=== PATIENT | female | born 1950 | race Caucasian/White ===

== ENCOUNTER → 2022-01-11 | Outpatient (CLI) | payer MEDICARE, OTHER ==
[2022-01-11 15:53] LABS: Prothrombin Time 10.8 sec (9.0-12.0)
[2022-01-12 00:54] LABS: Appearance,Urine Cloudy (Clear); Bilirubin,Urine Small (Negative); Blood,Urine Negative (Negative); Color,Urine Dark Yellow (Yellow); Ketones,Urine Trace mg/dL (Negative); Nitrite,Urine Negative (Negative); PH, Urine 6.5 (5.0-8.0); Urobilinogen,Urine 0.2 (0.2,1.0)
[2022-01-12 00:57] LABS: African American GFR (CKD) 77.2 (60.0-200.0); Albumin 4.6 g/dL (3.8-4.9); Albumin/Globulin Ratio 1.87 (1.60-3.17); Anion Gap 14.4 mmol/L (10.00-18.00); BUN/Creat Ratio 20.49 Ratio (12.00-20.00); Blood Urea Nitrogen 17.7 mg/dL (9.0-27.0); Calcium 10.2 mg/dL (8.7-10.3); Carbon Dioxide 25.6 mmol/L (20.0-27.5); Globulin 2.4 g/dL (1.6-3.3); Non-African American GFR(CKD) 66.6 (60.0-200.0); Potassium 4.3 mmol/L (3.5-5.5); Total Bilirubin 0.6 mg/dL (0.30-1.20)
[2022-01-12 01:20] LABS: HGB 15.4 g/dL (12.0-15.0); MCHC 32.1 g/dL (32.0-37.0); MCV 90.4 fL (80.0-97.0); Mean Platelet Volume 9.2 fL (9.5-12.2); NRBC Per 100 WBC 0 /100 WBCS (0.0-0.0); Platelet Count 290 X 10*3/uL (140-440); RBC 5.31 X 10*6/uL (4.10-5.20); RDW 12.5 % (11.5-14.5); WBC 5.88 X 10*3/uL (4.50-10.00)
[2022-01-12 01:45] LABS: Bacteria,Urine 1+ /HPF (None Seen)
== END | disposition home or self-care (01) ==
LOC: LABPAT 15:18
PROVIDERS: ATTEND Orthopaedic Surgery
DX: Z01.812 Encounter for preprocedural laboratory examination (principal); M16.11 Unilateral primary osteoarthritis, right hip
CPT/HCPCS: 80053; 81001; 85027; 85610; 85730; 87070

== ENCOUNTER 2022-01-22 06:06 | Day surgery (SDC) | payer MEDICARE, OTHER ==
[~2022-01-22 06:06] MED LIST: ACETAMINOPHEN TAB 500 MG TAB PO PRN; DEXAMETHASONE SOD PHOSPHATE 10 MG/ML 1 ML VIAL IV PRN; DOCUSATE 100 MG CAP PO PRN; FAMOTIDINE 20 MG/2 ML VIAL IVP PRN; KETOROLAC 15 MG/ML 1 ML VIAL IVP PRN; MIDAZOLAM 2 MG/2 ML VIAL IV PRN; ONDANSETRON 4 MG/2 ML VIAL IVP PRN; ROPIVACAINE/EPI/CLONIDINE/KET 50 ML SYRINGE MISCELLANE PRN; TRANEXAMIC ACID IN NACL,ISO-OS 1,000 MG in SALINE 1 100ML.BAG IVPB PRN; oxyCODONE ER 10 MG TAB.ER.12H PO PRN
[2022-01-22] MEDS ORDERED: HYDROmorphone 0.5 MG/0.5 ML SYRINGE IVP PRN ×4 (07:00→10:04)
[2022-01-22] MEDS: LACTATED RINGERS 1,000 ML IV SCH (07:02)
[2022-01-22] MEDS ORDERED: fentaNYL (PF) 50 MCG/ML 2 ML AMP IV ONE (07:11)
[2022-01-22] MEDS ORDERED: MIDAZOLAM 2 MG/2 ML VIAL IV ONE (07:11)
[2022-01-22] MEDS ORDERED: NEOSTIGMINE 1 MG/ML 10 ML VIAL ONE (07:28)
[2022-01-22] MEDS ORDERED: HYDROmorphone (PF) 1 MG/ML ONE (07:28)
[2022-01-22] MEDS ORDERED: SUCCINYLCHOLINE CHLORIDE 200 MG/10 ML VIAL IV ONE (07:28)
[2022-01-22] MEDS ORDERED: PHENYLEPHRINE-0.9% NACL SYG 1,000 MCG/10 ML SYRINGE ONE (07:28)
[2022-01-22] MEDS ORDERED: fentaNYL (PF) 50 MCG/ML 2 ML AMP ONE (07:28)
[2022-01-22] MEDS ORDERED: ROPIVACAINE 5 MG/ML 30 ML VIAL ONE (07:28)
[2022-01-22] MEDS ORDERED: LIDOCAINE 2% INJ 20 MG/ML (2 ML VIAL) ONE (07:28)
[2022-01-22] MEDS ORDERED: TRANEXAMIC ACID IN NACL,ISO-OS 1,000 MG/100 ML BAG ONE (07:28)
[2022-01-22] MEDS ORDERED: ROCURONIUM 10 MG/ML (5 ML VIAL) IV ONE (07:28)
[2022-01-22] MEDS ORDERED: GLYCOPYRROLATE 0.2 MG/ML 2 ML VIAL ONE (07:28)
[2022-01-22] MEDS ORDERED: PROPOFOL 10 MG/ML 20 ML VIAL IV ONE (07:28)
--- NOTE | 2022-01-22 09:15 | P.ANPRN ---
Procedure Note - Anesthesia - Nerve Block Performed Right Erector Spinae Single Time Out Performed: Yes ([id number]) Date of Procedure: 01/22/22 Procedure Start Time: 07:12 Procedure Stop Time: 07:15 Location of Patient: PreOp Indication: Acute Post-Operative Pain, Requested by Surgeon Specifically requested for management of pain by DrMara: Alon Lerma Sedation Type: Sedate with meaningful contact maintained Preparation: Sterile Prep Position: Sitting Catheter: None Needle Types: Pajunk Needle Gauge: 21 Ultrasound used to visualize needle placement: Yes Ultrasound used to observe medication spread: Yes Injectate: 0.5% Ropivacaine (see comment for volume) (30cc) Blood Aspirated: No Pain Paresthesia on Injection Noted: No Resistance on Injection: Normal Image Stored and Saved: Yes Events: Uneventful and Well Tolerated
[2022-01-22] MEDS ORDERED: LACTATED RINGERS 1,000 ML IV ONE (09:32)
[2022-01-22] MEDS ORDERED: NALOXONE 0.4 MG/ML 1 ML VIAL IV PRN (10:04)
[2022-01-22] MEDS ORDERED: hydrOXYzine pamoate 25 MG CAP PO PRN (10:04)
[2022-01-22] MEDS ORDERED: ONDANSETRON 4 MG/2 ML VIAL IVP PRN (10:04)
[2022-01-22] MEDS ORDERED: HYDROcodone/APAP 5-325MG 1 EACH TAB PO PRN ×2 (10:04)
--- NOTE | 2022-01-22 10:06 | XR ---
EXAMINATION TYPE: XR Hip Limited RT, FL guidance operating room DATE OF EXAM: 01/22/2022 CLINICAL HISTORY: Postoperative evaluation TECHNIQUE: Single portable view of the right hip was submitted. FINDINGS: Noted are changes of total hip arthroplasty with femoral and acetabular components appearin g well seated. Alignment is anatomic. Postsurgical soft tissue changes are evident. IMPRESSION: Satisfactory postoperative alignment. FLUORO TIME 35SECONDS
--- NOTE | 2022-01-22 10:09 | P.OP ---
Date of Procedure: 01/22/22 Preoperative Diagnosis: Severe right hip osteoarthritis Postoperative Diagnosis: Same Procedure(s) Performed: Right direct anterior total hip arthroplasty Implants: 1. [place] Trident II Acetabular Cup, Size #46 2. Jason Insignia Size # 3 Femoral Stem, Standard Offset 3. Dual Mobility OD 36 mm, ID 222. mm, +0 neck Anesthesia: JAVIERA, christopher Surgeon: Alon Lerma Biology Laboratory Assistant #1: Kera Espinoza Estimated Blood Loss (ml): 200 IV fluids (ml): 1,200 Pathology: none sent Condition: stable Disposition: PACU Indications for Procedure: I had a long discussion with the patient in the office on the potential risks and complications of an elective total hip replacement through a direct anterior approach. Risks discussed include, but are certainly not limited to, risks from anesthesia, superficial infection requiring local wound care or antibiotics, deep mohamud-prosthetic joint infection and the treatment required to eradicate infection, intraoperative fracture, postoperative periprosthetic fracture, damage to local blood vessels or nerves particularly the lateral femoral cutaneous nerve, delayed wound healing requiring local wound care or possibly surgical debridement, hip dislocation, leg length discrepancy, soft tissue irritation around the total hip implant such as iliopsoas tendinitis or trochanteric bursitis, wear and osteolysis from the implants, squeaking or audible noises, groin pain, thigh pain, heterotopic ossification, stiffness, aseptic loosening of the implants, dissatisfaction with surgical outcome, need for revision surgery, DVT, PE, swelling of the operative extremity, acute coronary event, stroke, failure to thrive, and possibly loss of life or limb. The patient understands that while these are the most common complications after an elective hip replacement there are certainly other less common complications possible. They were given ample time to ask questions regarding the potential complications of a hip replacement. Following our discussion the patient provided their verbal and written consent to go forward with an elective total hip replacement. Operative Findings: Severe right hip osteoarthritis Description of Procedure: The patient was identified in the preoperative holding area and the correct hip was marked with my initials. I reviewed the procedure and consent with the patient. All of their questions were answered. The patient was then brought back into the operating room by anesthesia. While on the [facility] anesthesia was administered by the anesthesia team. Preoperative antibiotics and tranexamic acid were also given. After the patient was under anesthesia I examined their ankles to determine their preoperative leg length discrepancy. The skin over the anterior aspect of the hip was shaved to remove hair over the site of planned incision. Both feet and ankles were padded with webril and boots for the [place] were applied. The patient was then carefully transferred onto the [place] table. A perineal post was immediately placed. The arms were placed on arm holders and were well-padded. Both boots were secured to the spars on the [place] table. The patient was positioned so that the pelvis was centered over the post. Nonsterile drapes were applied. A timeout was performed identifying the correct patient, operative extremity, and procedure. At this point fluoroscopy was brought in to take preoperative images of the pelvis and operative hip. Using the standing AP pelvis from the office as a template, a comparable image was obtained with fluoroscopy. A metallic bar was used to create a bi-ischial line for use as a reference to leg length adjustments during the procedure. Global offset was also measured on both the operative and nonoperative leg. Fluoroscopy was then brought out and a pre-scrub using a chlorhexidine scrub brush was performed. The operative limb was then prepped and draped in the standard sterile fashion. An anterior longitudinal incision was made lateral and distal to the ASIS. The skin and subcutaneous tissues were incised sharply. The underlying tensor fascia was identified and incised in its midportion. The fascia was dissected free from the underlying muscle and the muscle belly was retracted. A blunt tipped cobra retractor was placed over the superior neck under the muscle fibers of the gluteus minimus. The deep enveloping fascia of the tensor was incised. The anterior leash of vessels were then identified and cauterized. The fascia between the rectus and the capsule was then incised and the pre-capsular fat was excised. A second Cobra was placed inferior to the neck. The interval between the rectus and iliocapsularis and the hip capsule was developed and a retractor was placed carefully over the anterior rim of the acetabulum. A T-shaped anterior capsulotomy was performed. The superior capsular leaflet was left in place in the inferior capsular flap was excised. The Cobra retractors were placed intracapsularly. We then made a femoral neck osteotomy according to preoperative and intraoperative templating and confirmed the level of the osteotomy using fluoroscopic imaging. The femoral head was removed, passed off to the back table, and sized. The superior capsular flap was excised. Retractors were placed circumferentially exposing the acetabulum. We then circumferentially debrided the acetabulum free of labrum and osteophytes. The pulvinar was removed to fully visualize the cotyloid fossa. We then sequentially reamed to achieve peripheral fit and excellent bleeding subchondral bone. The socket was thoroughly irrigated. The acetabular component was impacted into the appropriate position using fluoroscopy to guide version, inclination, and depth of insertion taking care to have a comparable image of the AP pelvis to the standing image taken in the office. An excellent press-fit was achieved and final position was confirmed using fluoroscopy. The press fit was augmented with bony cancellus dome screws. The liner was then impacted into the socket. Attention was then turned to the femur. The remnant dorsal lateral capsule was excised. The short external rotators were visible and protected. A bone hook was used to confirm appropriate translation of the trochanter away from the acetabulum. The leg was then extended and adducted and the bone hook was used to elevate the femur for broaching. A box osteotome and blunt tipped canal sound was then utilized to gain access to the femoral canal. We then sequentially broached the femur in appropriate anteversion until excellent torsional stability was achieved. The neck cut was brought flush to the trial broach with a calcar planar. A trial neck and head were then placed onto the broach and the hip was atraumatically reduced under direct visualization. External rotation to 90 was performed to assess stability. Fluoroscopy was brought in. An AP and lateral fluoroscopic image of the proximal femur was obtained to assess position and fill of the trial broach. An AP of the pelvis was then obtained and matched to the preoperative image taken. A bi-ischial bar was then placed and measurements were taken to assess changes in length and offset. The hip was then carefully dislocated, the proximal femur was exposed, and the trial implants were removed. The wound and proximal femur was thoroughly irrigated using sterile saline and pulsatile lavage. The final femoral implant was dispensed and gently tapped into place generating an excellent press-fit. The trunnion was cleansed and the final head was tapped into place to engage the Enrique taper. The acetabulum was irrigated and visualized to be free of debris. The hip was carefully reduced. Stability was checked clinically with external rotation to 90 and there was no evidence of instability. Final fluoroscopic images were taken. The wound was then thoroughly irrigated and soaked with a dilute Betadine rinse for 3 minutes. 3 L of sterile saline was irrigated through the wound using pulsatile lavage. Local anesthetic cocktail was injected into the soft tissues around the surgical field. The wound was then closed in layers. A sterile dressing was placed over the surgical incision. The drapes were taken down and the patient was carefully transferred off of the [place] table. Following removal of the boots the leg lengths felt acceptable. The patient was then taken to recovery room having tolerated the procedure well. Kera Espinoza PA-C was required as a skilled permit review assistant for patient positioning, surgical exposure, retraction, placement of implants, and closure of the surgical wound. PLAN: The patient can weight-bear as tolerated on the operative extremity. 2 doses of postoperative antibiotics. DVT prophylaxis with aspirin 81 mg twice a day based on preoperative risk stratification. Physical therapy for gait training. Discontinue drain postoperative day #1 if output is less than 100 mL per shift.
[2022-01-22] MEDS ORDERED: ZOLPIDEM 5 MG TAB PO PRN (15:45)
--- NOTE | 2022-01-22 15:46 | P.CONS ---
History of Present Illness - Reason for Consult Consult date: 01/22/22 Medical management Requesting physician: Alon Lerma - Chief Complaint Right hip pain - History of Present Illness This is a pleasant 71-year-old patient, follows with . Chronic stable medical conditions include DVT of age of 18 years, hypertension, hyperlipidemia, osteoarthritis, endometrial cancer in 2020, IBS. Patient is undergoing right total hip arthroplasty. Postprocedure pain is controlled. No nausea, vomiting. Unclear liquids. Denies any cardiac or pulmonary history. Daughter at the bedside. Review of systems: GEN.: Tired EYES: None HEENT: None NECK: None RESPIRATORY: None CARDIOVASCULAR: None GASTROINTESTINAL: None GENITOURINARY: Incontinent MUSCULOSKELETAL: Other joint pains LYMPHATICS: None HEMATOLOGICAL: None PSYCHIATRY: Anxiety NEUROLOGICAL: Recently been using a cane, does not sleep well Past medical history to include: TIA, DVT about 20 years ago, hypertension, hyperlipidemia, osteoarthritis, endometrial cancer 2020, IBS, Social history: No smoking or alcohol. Lives alone. Family history: DVT Physical examination: VITAL SIGNS: 98.2, 76, 18, 101/64, 95% room air GENERAL:, BMI 33.5, reclining in bed, awake, comfortable. EYES: Pupils equal. Conjunctiva normal. HEENT: External appearance of nose and ears normal, oral cavity grossly normal. NECK: JVD not raised; masses not palpable. HEART: First and second heart sounds are normal; no edema. LUNGS: Respiratory rate normal; clear to auscultation. ABDOMEN: Soft, nontender, liver spleen not palpable, no masses palpable. PSYCH: Alert and oriented x3; mood and affect normal. MUSCULOSKELETAL:No Clubbing/cyanosis;muscles-grossly intact. Evidence of OA. Icepack overwrite the incision. NEUROLOGICAL: Cranial nerves grossly intact; no facial asymmetry, power and sensation grossly intact. LYMPHATICS: No lymph nodes palpable in the axilla and neck INVESTIGATIONS, reviewed in the clinical context: WBC 5.8 hemoglobin 15.4 platelets 290. Sodium 140, potassium 4.3, BUN 17.7, creatinine 0.9 Assessment and plan: -Right anterior total hip arthroplasty. IV Ancef for infection prophylaxis, aspirin for DVT prophylaxis, pain control. -Essential hypertension Resume Zestoretic, -GERD Omeprazole -Hyperlipidemia Lipitor 10 mg a day. -Obesity BMI 33.5 Weight loss measures. -Primary osteoarthritis multiple joints bilaterally. Voltaren -Chronic urinary stress incontinence Dependence -Chronic insomnia from medical reasons. Ambien when necessary -Anxiety not otherwise specified Xanax when necessary. Home medications resumed. Aspirin for DVT prophylaxis. Pain control. Care was discussed with the patient. Questions answered. Past Medical History Past Medical History: Cancer, CVA/TIA, Deep Vein Thrombosis (DVT), Hyperlipidemia, Hypertension, Osteoarthritis (OA) Additional Past Medical History / Comment(s): ?TIA several years ago-no residual effects, hx. endometrial cancer 2020, DVT years ago, IBS History of Any Multi-Drug Resistant Organisms: None Reported Past Surgical History: Hysterectomy, Orthopedic Surgery Additional Past Surgical History / Comment(s): [place] CTS Past Anesthesia/Blood Transfusion Reactions: Previous Problems w/ Anesthesia Additional Past Anesthesia/Blood Transfusion Reaction / Comm: slow to wake up after anesthesia Past Psychological History: Anxiety Smoking Status: Never smoker Past Alcohol Use History: None Reported Past Drug Use History: None Reported - Past Family History Brother(s) History Unknown: Yes Family Medical History: Deep Vein Thrombosis (DVT) Medications and Allergies Home Medications Medication Instructions Recorded Confirmed Type ALPRAZolam [Xanax] 0.25 mg PO BID PRN 01/20/22 01/22/22 History Acetaminophen [Tylenol Extra 500 mg PO Q6H PRN 01/20/22 01/22/22 History Strength] Atorvastatin [Lipitor] 10 mg PO DAILY 01/20/22 01/22/22 History Lisinopril-Hctz 20-12.5 mg 1 tab PO DAILY 01/20/22 01/22/22 History [Zestoretic 20-12.5] Aspirin 81 mg PO BID 30 Days #60 tab 01/22/22 Rx Diclofenac Sodium [Voltaren] 75 mg PO BID 30 Days #60 tab 01/22/22 Rx Docusate [Colace] 100 mg PO BID #60 capsule 01/22/22 Rx HYDROcodone/APAP 5-325MG [[place] 1 - 2 tab PO Q6HR PRN 7 Days #32 01/22/22 Rx 5-325] tab Omeprazole 40 mg PO DAILY 30 Days #30 cap 01/22/22 Rx Allergies Allergy/AdvReac Type Severity Reaction Status Date / Time No Known Allergies Allergy Verified 01/22/22 06:47 Physical Exam Vitals: Vital Signs Temp Pulse Resp BP Pulse Ox 01/22/22 14:39 98.2 F 76 18 101/64 95 01/22/22 13:30 74 16 122/61 96 01/22/22 13:00 79 12 107/56 96 01/22/22 12:30 79 14 107/59 96 01/22/22 12:00 74 16 108/65 96 01/22/22 11:30 71 12 110/56 96 01/22/22 11:15 72 12 118/58 99 01/22/22 11:00 68 12 127/62 99 01/22/22 10:45 73 12 132/60 99 01/22/22 10:30 74 12 123/60 98 01/22/22 10:15 77 12 137/58 98 01/22/22 10:04 99 F 92 12 156/66 97 01/22/22 07:18 70 16 127/62 96 01/22/22 06:44 98.4 F 76 18 138/74 97 Intake and Output 01/22/22 01/22/22 01/22/22 06:59 14:59 22:59 Intake Total 1850 Output Total 200 Balance 1650 Intake: IV 1850 Output: Estimated Blood Loss 200 Other: Weight 80.5 kg 80.5 kg
[2022-01-22] MEDS: ASPIRIN 81 MG PO SCH (20:56)
[2022-01-22] MEDS ORDERED: SENNOSIDES-DOCUSATE SODIUM 1 EACH TAB PO SCH (21:00)
--- NOTE | 2022-01-23 06:36 | P.DS ---
Providers Date of admission: 01/22/2022 Expected date of discharge: 01/23/22 Attending physician: Alon Lerma Consults: 01/22/22 10:04 Consult Physician Routine Consulting Provider: Gurwinder Crain Consult Reason/Comments: medical management Do you want consulting provider notified?: Yes Primary care physician: [facility] Course: The patient underwent uncomplicated right total hip arthroplasty on 01/22/2022. Following surgery she was transferred to the orthopedic floor. She worked with physical therapy and was seen by internal medicine. I evaluated the patient on postoperative day #1. She had mild pain in the right hip overall is feeling better than prior to surgery. Her dressing was clean. Motor and sensory function were intact in the right lower extremity. She been up and walk to the bathroom with some discomfort but otherwise was doing well. Plan - Discharge Summary Discharge Rx Participant: Yes New Discharge Prescriptions: New Docusate [Colace] 100 mg PO BID #60 capsule Omeprazole 40 mg PO DAILY 30 Days #30 cap Diclofenac Sodium [Voltaren] 75 mg PO BID 30 Days #60 tab Aspirin 81 mg PO BID 30 Days #60 tab HYDROcodone/APAP 5-325MG [[place] 5-325] 1 - 2 tab PO Q6HR PRN 7 Days #32 tab PRN Reason: Pain No Action ALPRAZolam [Xanax] 0.25 mg PO BID PRN PRN Reason: Anxiety Lisinopril-Hctz 20-12.5 mg [Zestoretic 20-12.5] 1 tab PO DAILY Acetaminophen [Tylenol Extra Strength] 500 mg PO Q6H PRN PRN Reason: Pain Atorvastatin [Lipitor] 10 mg PO DAILY Discharge Medication List ALPRAZolam [Xanax] 0.25 mg PO BID PRN 01/20/22 [History] Acetaminophen [Tylenol Extra Strength] 500 mg PO Q6H PRN 01/20/22 [History] Atorvastatin [Lipitor] 10 mg PO DAILY 01/20/22 [History] Lisinopril-Hctz 20-12.5 mg [Zestoretic 20-12.5] 1 tab PO DAILY 01/20/22 [History] Aspirin 81 mg PO BID 30 Days #60 tab 01/22/22 [Rx] Diclofenac Sodium [Voltaren] 75 mg PO BID 30 Days #60 tab 01/22/22 [Rx] Docusate [Colace] 100 mg PO BID #60 capsule 01/22/22 [Rx] HYDROcodone/APAP 5-325MG [[place]attan 5-325] 1 - 2 tab PO Q6HR PRN 7 Days #32 tab 01/22/22 [Rx] Omeprazole 40 mg PO DAILY 30 Days #30 cap 01/22/22 [Rx] Follow up Appointment(s)/Referral(s): [facility], [NON-STAFF] - 1-2 Days ([facility] will call you to schedule your in home physical therapy visits. ) Alon Lerma MD [Medical Doctor] - 2 Weeks Activity/Diet/Wound Care/Special Instructions: Weight bear to tolerance on operative extremity with a walker. Keep operative dressing intact until follow-up appointment in the office. Call the office if dressing becomes saturated or falls off. May shower over dressing. Take pain medication as prescribed. Take aspirin 81mg BID x 4 weeks for blood clot prevention. Follow-up in the office in two weeks with Dr. Lerma. Call the office with any questions or concerns, Discharge Disposition: HOME WITH HOME HEALTH SERVICES
[2022-01-23] MEDS: LACTATED RINGERS 1,000 ML IV SCH (07:18)
[2022-01-23] MEDS: ASPIRIN 81 MG PO SCH (08:03)
[2022-01-23 08:27] VITALS: BP 113/67; PULSE 74; RESP 18; TEMP 98.4
[2022-01-23 08:56] LABS: Basophils # (A) 0.02 X 10*3/uL (0.00-0.10); Basophils % (A) 0.1 %; Eosinophils # (A) 0.01 X 10*3/uL (0.04-0.35); Eosinophils % (A) 0.1 %; HCT 41.4 % (37.2-46.3); Immature Grans, Automated 0.6 %; Lymphocytes # (A) 1.26 X 10*3/uL (0.90-5.00); Lymphocytes % (A) 9.2 %; MCHC 31.4 g/dL (32.0-37.0); MCV 92.4 fL (80.0-97.0); Mean Platelet Volume 9.3 fL (9.5-12.2); Monocytes # (A) 0.88 X 10*3/uL (0.20-1.00); Monocytes % (A) 6.4 %; NRBC Per 100 WBC 0 /100 WBCS (0.0-0.0); Neutrophils # (A) 11.48 X 10*3/uL (1.80-7.70); Neutrophils % (A) 83.6 %; Platelet Count 288 X 10*3/uL (140-440); RBC 4.48 X 10*6/uL (4.10-5.20); RDW 12.8 % (11.5-14.5); WBC 13.73 X 10*3/uL (4.50-10.00)
== END 2022-01-23 13:42 | disposition home health service (06) ==
LOC: OR 06:06 → 4SSUR 10:04 → OR 01-23 13:42
PROVIDERS: ATTEND Orthopaedic Surgery
DX: M16.0 Bilateral primary osteoarthritis of hip (principal); G89.18 Other acute postprocedural pain; I10 Essential (primary) hypertension; E78.5 Hyperlipidemia, unspecified; F41.9 Anxiety disorder, unspecified; Z79.82 Long term (current) use of aspirin; Z79.1 Long term (current) use of non-steroidal anti-inflammatories (NSAID); Z82.49 Family history of ischemic heart disease and other diseases of the circulatory system; Z80.49 Family history of malignant neoplasm of other genital organs; Z79.899 Other long term (current) drug therapy
CPT/HCPCS: 97116; 97162; 97166; 64999; 86900; 86901; 85025; 86850; 73501; 27130; 76942; C1776; J2250; J1100; J0690 ×2; J2405; J3010; J1885

== ENCOUNTER → 2024-02-18 | Outpatient (CLI) | payer MEDICARE, OTHER ==
[2024-02-18 23:15] LABS: HCT 47.3 % (37.2-46.3); HGB 15.5 g/dL (12.0-15.0); MCH 29.3 pg (27.0-32.0); MCHC 32.8 g/dL (32.0-37.0); MCV 89.4 FL (80.0-97.0); Mean Platelet Volume 8.9 FL (9.5-12.2); NRBC Per 100 WBC 0 X 10*3/uL (0.00-0.01); Platelet Count 252 X 10*3/uL (140-440); RBC 5.29 X 10*6/uL (4.10-5.20); RDW 12.4 % (11.5-14.5)
== END | disposition home or self-care (01) ==
LOC: LABPAT 11:37
PROVIDERS: ATTEND Orthopaedic Surgery
DX: Z01.812 Encounter for preprocedural laboratory examination (principal); E11.9 Type 2 diabetes mellitus without complications; M16.12 Unilateral primary osteoarthritis, left hip; Z22.322 Carrier or suspected carrier of Methicillin resistant Staphylococcus aureus
CPT/HCPCS: 85027

== ENCOUNTER → 2024-02-21 | Outpatient (CLI) | payer MEDICARE, OTHER ==
[2024-02-21 16:48] LABS: Partial Thromboplastin Time 23.8 sec (22.0-30.0); Prothrombin Time 10.9 sec (10.0-12.5)
== END | disposition home or self-care (01) ==
LOC: LABPAT 15:20
PROVIDERS: ATTEND Orthopaedic Surgery
DX: Z01.812 Encounter for preprocedural laboratory examination (principal); M16.12 Unilateral primary osteoarthritis, left hip; Z22.322 Carrier or suspected carrier of Methicillin resistant Staphylococcus aureus
CPT/HCPCS: 85610; 85730; 87070

== ENCOUNTER 2024-02-24 05:35 | Day surgery (SDC) | payer MEDICARE, OTHER ==
[~2024-02-24 05:35] MED LIST changes: -ACETAMINOPHEN TAB 500 MG TAB PO PRN; -DEXAMETHASONE SOD PHOSPHATE 10 MG/ML 1 ML VIAL IV PRN; -DOCUSATE 100 MG CAP PO PRN; -FAMOTIDINE 20 MG/2 ML VIAL IVP PRN; -KETOROLAC 15 MG/ML 1 ML VIAL IVP PRN; -MIDAZOLAM 2 MG/2 ML VIAL IV PRN; -ONDANSETRON 4 MG/2 ML VIAL IVP PRN; -TRANEXAMIC ACID IN NACL,ISO-OS 1,000 MG in SALINE 1 100ML.BAG IVPB PRN; -oxyCODONE ER 10 MG TAB.ER.12H PO PRN
[2024-02-24] MEDS: IV FLUID CONTINUATION 1,000 ML IV ONE (05:48)
[2024-02-24] MEDS ORDERED: TRANEXAMIC 1,000 MG/100ML-NACL 1,000 MG in SALINE 1 100ML.BAG IV PRN (06:00)
[2024-02-24] MEDS ORDERED: TRANEXAMIC 1,000 MG/100ML-NACL 1,000 MG in SALINE 1 100ML.BAG IVPB PRN (06:00)
[2024-02-24] MEDS: LACTATED RINGERS 1,000 ML IV SCH (06:21)
[2024-02-24] MEDS: oxyCODONE ER 10 MG TAB.ER.12H PO PRN (06:22)
[2024-02-24] MEDS: DOCUSATE 100 MG CAP PO PRN (06:22)
[2024-02-24] MEDS: ACETAMINOPHEN TAB 500 MG TAB PO PRN (06:22)
[2024-02-24] MEDS: ONDANSETRON 4 MG/2 ML VIAL IVP PRN (06:23)
[2024-02-24] MEDS: FAMOTIDINE 20 MG/2 ML VIAL IVP PRN (06:23)
[2024-02-24] MEDS: KETOROLAC 15 MG/ML 1 ML VIAL IVP PRN (06:23)
[2024-02-24] MEDS: DEXAMETHASONE SOD PHOSPHATE 10 MG/ML 1 ML VIAL IV PRN (06:24)
[2024-02-24 06:42] VITALS: BP 146/71; PULSE 82; RESP 16; TEMP 98
[2024-02-24] MEDS ORDERED: MIDAZOLAM 2 MG/2 ML VIAL IV PRN (07:00)
[2024-02-24] MEDS ORDERED: HYDROmorphone 0.5 MG/0.5 ML SYRINGE IVP PRN (07:00)
== END 2024-02-24 07:04 | disposition home or self-care (01) ==
LOC: OR 05:35
PROVIDERS: ATTEND Orthopaedic Surgery
DX: M16.12 Unilateral primary osteoarthritis, left hip (principal); Z96.641 Presence of right artificial hip joint; I10 Essential (primary) hypertension; E78.5 Hyperlipidemia, unspecified; E11.9 Type 2 diabetes mellitus without complications; K21.9 Gastro-esophageal reflux disease without esophagitis
CPT/HCPCS: 86900; 86901; 86850; J1100; J2405; J3490; J1885

== ENCOUNTER 2024-03-09 05:52 | Day surgery (SDC) | payer MEDICARE, OTHER ==
[2024-03-09] MEDS ORDERED: TRANEXAMIC 1,000 MG/100ML-NACL 1,000 MG in SALINE 1 100ML.BAG IVPB PRN (06:00)
[2024-03-09] MEDS ORDERED: TRANEXAMIC 1,000 MG/100ML-NACL 1,000 MG in SALINE 1 100ML.BAG IV PRN (06:00)
[2024-03-09] MEDS ORDERED: ONDANSETRON 4 MG/2 ML VIAL IVP PRN (06:00)
[2024-03-09] MEDS ORDERED: LIDOCAINE 1% (10MG/ML) FOR IV START INTRADERMA PRN (06:07)
[2024-03-09] MEDS ORDERED: fentaNYL (PF) 50 MCG/ML 2 ML AMP IVP PRN (06:07)
[2024-03-09] MEDS ORDERED: HYDROmorphone 0.5 MG/0.5 ML SYRINGE IVP PRN ×4 (06:07→10:59)
[2024-03-09] MEDS: ACETAMINOPHEN TAB 500 MG TAB PO PRN (06:49)
[2024-03-09] MEDS: oxyCODONE ER 10 MG TAB.ER.12H PO PRN (06:49)
[2024-03-09] MEDS: DOCUSATE 100 MG CAP PO PRN (06:49)
[2024-03-09] MEDS: IV FLUID CONTINUATION 1,000 ML IV ONE (06:55)
[2024-03-09] MEDS: LACTATED RINGERS 1,000 ML IV SCH (06:55)
[2024-03-09] MEDS: ONDANSETRON 4 MG/2 ML VIAL IVP ONE (06:56)
[2024-03-09] MEDS: DEXAMETHASONE SOD PHOSPHATE 10 MG/ML 1 ML VIAL IV PRN (06:58)
[2024-03-09] MEDS: KETOROLAC 15 MG/ML 1 ML VIAL IVP PRN (07:00)
[2024-03-09] MEDS: FAMOTIDINE 20 MG/2 ML VIAL IVP PRN (07:02)
[2024-03-09] MEDS: MIDAZOLAM 2 MG/2 ML VIAL IV PRN (07:09)
[2024-03-09] MEDS ORDERED: HYDROmorphone (PF) 1 MG/ML ONE (07:24)
[2024-03-09] MEDS ORDERED: NEOSTIGMINE 1 MG/ML 10 ML VIAL ONE (07:24)
[2024-03-09] MEDS ORDERED: ROCURONIUM 10 MG/ML (5 ML VIAL) IV ONE (07:24)
[2024-03-09] MEDS ORDERED: GLYCOPYRROLATE 0.2 MG/ML 2 ML VIAL ONE (07:24)
[2024-03-09] MEDS ORDERED: SUCCINYLCHOLINE CHLORIDE 200 MG/10 ML VIAL IV ONE (07:24)
[2024-03-09] MEDS ORDERED: TRANEXAMIC 1,000 MG/100ML-NACL PREMIX BAG ONE (07:24)
[2024-03-09] MEDS ORDERED: PHENYLEPHRINE-0.9% NACL SYG 1,000 MCG/10 ML SYRINGE ONE (07:24)
[2024-03-09] MEDS ORDERED: fentaNYL (PF) 50 MCG/ML 2 ML AMP ONE (07:24)
[2024-03-09] MEDS ORDERED: PROPOFOL 10 MG/ML 20 ML VIAL IV ONE (07:24)
[2024-03-09] MEDS ORDERED: ROPIVACAINE 5 MG/ML 30 ML VIAL ONE (07:24)
[2024-03-09] MEDS ORDERED: LIDOCAINE 1% INJ 10MG/ML (20 ML MDV) ONE (07:24)
[2024-03-09] MEDS ORDERED: DEXAMETHASONE SOD PHOSPHATE 4 MG/ML 1 ML VIAL ONE (07:24)
[2024-03-09] MEDS: ROPIVACAINE/EPI/CLONIDINE/KET 50 ML SYRINGE MISCELLANE PRN (08:04)
[2024-03-09] MEDS: VANCOMYCIN 1,000 MG VIAL MISCELLANE ONE (09:33)
[2024-03-09] MEDS: LACTATED RINGERS 1,000 ML IV ONE (09:59)
--- NOTE | 2024-03-09 10:45 | P.OP ---
Date of Procedure: 03/09/24 Preoperative Diagnosis: 1. Severe left hip osteoarthritis Postoperative Diagnosis: 1. Severe left hip osteoarthritis 2. Intra-operative periprosthetic femur fracture 3. BMI 35 Procedure(s) Performed: 1. Left direct anterior total hip arthroplasty 2. Application of negative pressure incisional wound VAC, left hip, <50 sq cm, incision measuring 15 cm (An incisional wound VAC was used due to the patient's body habitus and BMI) Implants: 1. Jason Trident II Acetabular Cup, Size #46 2. Jason Accolade C Size # 2 Femoral Stem, Standard Offset 3. Dual Mobility OD 36mm, ID 22.2 mm, +3 mm neck Anesthesia: LINO, regional Surgeon: Alon Lerma Label Stamper #1: Kobe Rivers Estimated Blood Loss (ml): 250 IV fluids (ml): 1,200 Pathology: none sent Condition: stable Disposition: PACU Indications for Procedure: I had a long discussion with the patient in the office on the potential risks and complications of an elective total hip replacement through a direct anterior approach. Risks discussed include, but are certainly not limited to, risks from anesthesia, superficial infection requiring local wound care or antibiotics, deep mohamud-prosthetic joint infection and the treatment required to eradicate infection, intraoperative fracture, postoperative periprosthetic fracture, damage to local blood vessels or nerves particularly the lateral femoral cutaneous nerve, delayed wound healing requiring local wound care or possibly surgical debridement, hip dislocation, leg length discrepancy, soft tissue irritation around the total hip implant such as iliopsoas tendinitis or trochanteric bursitis, wear and osteolysis from the implants, squeaking or audible noises, groin pain, thigh pain, heterotopic ossification, stiffness, aseptic loosening of the implants, dissatisfaction with surgical outcome, need for revision surgery, DVT, PE, swelling of the operative extremity, acute coronary event, stroke, failure to thrive, and possibly loss of life or limb. The patient understands that while these are the most common complications after an elective hip replacement there are certainly other less common complications possible. They were given ample time to ask questions regarding the potential complications of a hip replacement. Following our discussion the patient provided their verbal and written consent to go forward with an elective total hip replacement. Operative Findings: During surgery the patient was found to have good bone quality in the proximal femur. Given on quality and that a cementless stem had been used on her right side I elected to use a cementless stem. During implantation of the final stem there was a calcar fracture that occurred. The stem was immediately backed out and the fracture cabled above and below the lesser trochanter. The fracture did not appear to propagate below the lesser trochanter and was completely nondisplaced. Following this I was unable to fully seat a size 3 cementless stem and a size 2 cementless stem was unstable. At this point I elected to use a cemented stem. Description of Procedure: The patient was identified in the preoperative holding area and the correct hip was marked with my initials. I reviewed the procedure and consent with the patient. All of their questions were answered. The patient was then brought back into the operating room by anesthesia. While on the [facility] anesthesia was administered by the anesthesia team. Preoperative antibiotics and tranexamic acid were also given. After the patient was under anesthesia I examined their ankles to determine their preoperative leg length discrepancy. The skin over the anterior aspect of the hip was shaved to remove hair over the site of planned incision. Both feet and ankles were padded with webril and boots for the [place] were applied. The patient was then carefully transferred onto the [place] table. A perineal post was immediately placed. The arms were placed on arm holders and were well-padded. Both boots were secured to the spars on the [place] table. The patient was positioned so that the pelvis was centered over the post. Nonsterile drapes were applied. A timeout was performed identifying the correct patient, operative extremity, and procedure. At this point fluoroscopy was brought in to take preoperative images of the pelvis and operative hip. Using the standing AP pelvis from the office as a template, a comparable image was obtained with fluoroscopy. A metallic bar was used to create a bi-ischial line for use as a reference to leg length adjustments during the procedure. Global offset was also measured on both the operative and nonoperative leg. Fluoroscopy was then brought out and a pre-scrub using a chlorhexidine scrub brush was performed. The operative limb was then prepped and draped in the standard sterile fashion. An anterior longitudinal incision was made lateral and distal to the ASIS. The skin and subcutaneous tissues were incised sharply. The underlying tensor fascia was identified and incised in its midportion. The fascia was dissected free from the underlying muscle and the muscle belly was retracted. A blunt tipped cobra retractor was placed over the superior neck under the muscle fibers of the gluteus minimus. The deep enveloping fascia of the tensor was incised. The anterior leash of vessels were then identified and cauterized. The fascia between the rectus and the capsule was then incised and the pre-capsular fat was excised. A second Cobra was placed inferior to the neck. The interval between the rectus and iliocapsularis and the hip capsule was developed and a retractor was placed carefully over the anterior rim of the acetabulum. A T-shaped anterior capsulotomy was performed. The superior capsular leaflet was left in place in the inferior capsular flap was excised. The Cobra retractors were placed intracapsularly. We then made a femoral neck osteotomy according to preoperative and intraoperative templating and confirmed the level of the osteotomy using fluoroscopic imaging. The femoral head was removed, passed off to the back table, and sized. The superior capsular flap was excised. Retractors were placed circumferentially exposing the acetabulum. We then circumferentially debrided the acetabulum free of labrum and osteophytes. The pulvinar was removed to fully visualize the cotyloid fossa. We then sequentially reamed to achieve peripheral fit and excellent bleeding subchondral bone. The socket was thoroughly irrigated. The acetabular component was impacted into the appropriate position using fluoroscopy to guide version, inclination, and depth of insertion taking care to have a comparable image of the AP pelvis to the standing image taken in the office. An excellent press-fit was achieved and final position was confirmed using fluoroscopy. The press fit was augmented with bony cancellus dome screws. The liner was then impacted into the socket. Attention was then turned to the femur. The remnant dorsal lateral capsule was excised. The short external rotators were visible and protected. A bone hook was used to confirm appropriate translation of the trochanter away from the acetabulum. The leg was then extended and adducted and the bone hook was used to elevate the femur for broaching. On inspection of the patient's proximal femur, they appeared to have good bone quality so I elected to proceed with cementless femoral fixation. A box osteotome and blunt tipped canal sound was then utilized to gain access to the femoral canal. We then sequentially broached the femur in appropriate anteversion until torsional stability was achieved and the implant was felt to have reached the appropriate size to allow trialing. The neck cut was brought flush to the trial broach with a calcar planar. A trial neck and head were then placed onto the broach and the hip was atraumatically reduced under direct visualization. External rotation to 90 was performed to assess stability. Fluoroscopy was brought in. An AP and lateral fluoroscopic image of the proximal femur was obtained to assess position and fill of the trial broach. An AP of the pelvis was then obtained and matched to the preoperative image taken. A bi-ischial bar was then placed and measurements were taken to assess changes in length and offset. The hip was then carefully dislocated, the proximal femur was exposed, and the trial implants were removed. the final stem was dispensed. As the stem was carefully advanced degenerate the press-fit a minimally displaced fracture developed as the stem was fully seated. I immediately removed the stem. The fracture line was visualized. It was nondisplaced and extended to but not past the lesser trochanter. The leg was brought up using the table and a carefully placed cables above and below the lesser trochanter. The fracture was nicely reduced and stable. At this point I attempted to place a cementless stem. The size 3 cementless stem would not advance to fully seat the collar of the stem on the calcar. I attempted to use a size 2 and 3 broach to open up the broach envelope. The size 2 which was unstable but the size 3 broach had a nice fit. I again tried to place the final size 3 implant but it would not advance without undue force. At this point I elected to abandon cementless fixation and proceed with a cemented femoral stem. I placed a cemented broach. The hip was reduced and fluoroscopy was brought in. The size 2 broach had excellent fill within the femur. An AP and external rotation view of 90 of the left femur showed excellent placement of the cables above and below the lesser trochanter and no evidence of displaced fracture. Fluoroscopy was then used to identify changes in leg length and offset. The hip was carefully dislocated.The proximal femur was then prepared for cementing. The canal was thoroughly irrigated with pulsatile lavage to remove blood and marrow contents. A cement restrictor was placed to a depth just distal to the tip of the final implant. Epinephrine-soaked gauze was then packed into the proximal femur. 2 bags of cement were then mixed using a centrifuge and placed into a cement gun. Anesthesia was notified that cementing was about to commence to make sure the patient was appropriately ventilated and hydrated. Once the cement had reached appropriate consistency, the cement gun was used to fill the canal in a retrograde fashion starting at the restrictor. Cement was then pressurized into the canal with a blue tipped bundle wrapper. The stem was then carefully introduced into the cement taking care to guide the implant into appropriate version. The stem was held in position until the cement had fully set. All extra cement was removed while the cement was hardening. The trunnion was cleansed and the final head was tapped into place to engage the Enrique taper. The acetabulum was irrigated and visualized to be free of debris. The hip was carefully reduced. Stability was checked clinically with external rotation to 90 and there was no evidence of instability. Final fluoroscopic images were taken. The wound was then thoroughly irrigated and soaked with a dilute chlorhexidine rinse. 3 L of sterile saline was irrigated through the wound using pulsatile lavage. Local anesthetic cocktail was injected into the soft tissues around the surgical field. 2 grams of vancomycin powder was placed in the wound. The wound was then closed in layers. An incisional wound VAC was placed over the closed surgical incision. The drapes were taken down and the patient was carefully transferred off of the [place] table. Following removal of the boots the leg lengths felt acceptable. The patient was then taken to recovery room having tolerated the procedure well. Kobe Rivers PA-C was required as a skilled clinic assistant due to the complexity of surgery for patient positioning, draping, exposure, retraction, closure of wound, and application of dressing. PLAN: Due intraoperative fracture the patient will need to be toe-touch weightbearing on the left lower extremity for 6 weeks. 2 doses of postoperative antibiotics. DVT prophylaxis with aspirin 81 mg twice a day based on preoperative risk stratification. Low dose antibiotic suppression with doxycycline 100 mg twice a day. Physical therapy for gait training. The patient may need discharge to rehab or [facility] facility due to her protected weightbearing.
--- NOTE | 2024-03-09 10:54 | XR ---
Fluoroscopy History: Left Hip-Ant L HIP REPLACEMENT, 51SEC FL TIME, DAP=2.1 [facility], , 03/09/2024 10:52 AM
[2024-03-09] MEDS ORDERED: MAGNESIUM HYDROXIDE 2,400 MG/30 ML CUP PO PRN (10:59)
[2024-03-09] MEDS ORDERED: NALOXONE 0.4 MG/ML 1 ML VIAL IV PRN (10:59)
--- NOTE | 2024-03-09 11:05 | FL ---
Fluoroscopy History: Left Hip-Ant L HIP REPLACEMENT, 51SEC FL TIME, DAP=2.2091 [facility], , 03/09/2024 11:03 AM
[2024-03-09] MEDS: DEXAMETHASONE SOD PHOSPHATE 4 MG/ML 1 ML VIAL IV ONE (13:21)
[2024-03-09] MEDS: SODIUM CHLORIDE 0.9% 1,000 ML IV SCH (13:21)
[2024-03-09] MEDS: HYDROcodone/APAP 5-325MG 1 EACH TAB PO PRN (16:50)
[2024-03-09] MEDS: hydrOXYzine pamoate 25 MG CAP PO PRN (16:50)
[2024-03-09 20:36] LABS: Glucose,Whole Blood 197 mg/dL (70-110)
--- NOTE | 2024-03-09 21:33 | P.CONS ---
History of Present Illness - Reason for Consult Consult date: 03/09/24 Postop medical management - Chief Complaint Severe left hip osteoarthritis - History of Present Illness 73-year-old female patient with history of hypertension, hyperlipidemia, GERD, history of DVT, admitted to the hospital for elective left direct anterior total hip arthroplasty; patient is POD #0 During procedure patient sustained intraoperative periprosthetic femoral fracture; reports fair pain control; remains on bedrest per recommendations of orthopedic surgery; reports poor to reduced appetite; fair fluid intake Blood glucose elevated at 197 Given intraoperative fracture, patient is recommended to be toe-touch weightbearing on left lower extremity for 6 weeks; she did receive 2 doses of postoperative antibiotics and low-dose antibiotic suppression with doxycycline 100 mg twice daily -DVT prophylaxis with aspirin 81 mg twice daily Review of Systems REVIEW OF SYSTEMS: CONSTITUTIONAL: No fever, no malaise, no fatigue. HEENT: No recent visual problems or hearing problems. Denied any sore throat. CARDIOVASCULAR: No chest pain, orthopnea, PND, no palpitations, no syncope. PULMONARY: No shortness of breath, no cough, no hemoptysis. GASTROINTESTINAL: No diarrhea, no nausea, no vomiting, no abdominal pain. NEUROLOGICAL: No headaches, no weakness, no numbness. HEMATOLOGICAL: Denies any bleeding or petechiae. GENITOURINARY: Denies any burning micturition, frequency, or urgency. MUSCULOSKELETAL/RHEUMATOLOGICAL: Denies any joint pain, swelling, or any muscle pain. ENDOCRINE: Denies any polyuria or polydipsia. The rest of the 14-point review of systems is negative. Past Medical History Past Medical History: Cancer, Deep Vein Thrombosis (DVT), GERD/Reflux, Hyperlipidemia, Hypertension Additional Past Medical History / Comment(s): cervical cancer, vergio History of Any Multi-Drug Resistant Organisms: None Reported Past Surgical History: Hysterectomy, Joint Replacement, Tonsillectomy Additional Past Surgical History / Comment(s): right hip, d & c, carpal tunnel Past Anesthesia/Blood Transfusion Reactions: No Reported Reaction Past Psychological History: Anxiety Smoking Status: Never smoker Past Alcohol Use History: None Reported - Past Family History Brother(s) History Unknown: Yes Medications and Allergies Home Medications Medication Instructions Recorded Confirmed Type ALPRAZolam [Xanax] 0.25 mg PO BID PRN 01/20/22 03/09/24 History Atorvastatin [Lipitor] 10 mg PO DAILY 01/20/22 03/09/24 History Lisinopril-Hctz 20-12.5 mg 1 tab PO DAILY 01/20/22 03/09/24 History [Zestoretic 20-12.5] Econazole 1% Cream [Spectazole] 1 applic TOPICAL DAILY #15 gm 02/24/24 03/09/24 Rx Fluconazole [Diflucan] 150 mg PO DAILY #2 tab 02/24/24 03/09/24 Rx Allergies Allergy/AdvReac Type Severity Reaction Status Date / Time No Known Allergies Allergy Verified 03/09/24 06:28 Physical Exam Vitals: Vital Signs Temp Pulse Resp BP BP Pulse Ox 03/09/24 16:16 71 113/70 03/09/24 16:01 70 105/67 03/09/24 15:46 74 106/69 03/09/24 15:31 75 110/70 03/09/24 15:16 68 110/71 03/09/24 15:01 79 113/73 03/09/24 14:46 83 133/76 03/09/24 14:31 72 112/71 03/09/24 14:16 79 116/73 03/09/24 14:01 78 113/67 03/09/24 13:30 81 18 108/61 95 03/09/24 13:00 82 19 116/56 95 03/09/24 12:30 81 16 101/60 94 L 03/09/24 12:15 77 16 104/56 94 L 03/09/24 12:00 78 16 115/55 94 L 03/09/24 11:45 75 19 99/54 95 03/09/24 11:30 78 19 122/59 95 03/09/24 11:15 82 19 120/57 96 03/09/24 11:00 88 19 125/59 96 03/09/24 10:53 97.4 F L 103 H 19 123/59 96 03/09/24 07:15 70 16 119/57 99 03/09/24 06:33 97.9 F 63 17 164/76 97 Intake and Output 03/09/24 03/09/24 03/09/24 06:59 14:59 22:59 Intake Total 100 1150 250 Output Total 300 Balance 100 850 250 Intake: IV 100 1150 Oral 250 Output: Estimated Blood Loss 300 Other: Weight 85.7 kg 85.7 kg - Constitutional General appearance: Present: average body habitus, cooperative, no acute distress - EENT Eyes: Present: anicteric sclerae, EOMI, PERRLA, normal appearance Neck: Present: normal ROM. Absent: lymphadenopathy, rigidity, thyromegaly Thyroid: bilateral: normal size, negative: enlarged, nodule Respiratory: bilateral: CTA, negative: rales, rhonchi, wheezing Cardiovascular: regular: normal: S1, S2 Abnormal Heart Sounds: Absent: systolic murmur, diastolic murmur General gastrointestinal: Present: normal bowel sounds, soft. Absent: distended, organomegaly, tenderness Integumentary: Present: normal turgor. Absent: jaundiced, rash, ulcer Neurologic: Present: CNII-XII intact. Absent: focal deficits Psychiatric: Present: A&O x's 3, appropriate affect, intact judgment & insight Assessment and Plan Assessment: 1. Severe left hip osteoarthritis; patient is status post left direct anterior total hip arthroplasty; POD #0 --Patient sustained an intraoperative periprosthetic femoral fracture; Given intraoperative fracture, patient is recommended to be toe-touch weightbearing on left lower extremity for 6 weeks; she did receive 2 doses of postoperative antibiotics and low-dose antibiotic suppression with doxycycline 100 mg twice daily -DVT prophylaxis with aspirin 81 mg twice daily 2. Hypertension; lisinoprilhydrochlorothiazide 20-12.5 mg daily 3. Hyperlipidemia; Lipitor 10 mg daily 4. Anxiety; Xanax 0.25 mg twice daily 5. GERD/gastritis; Protonix 40 mg daily DVT prophylaxis; heparin 81 mg twice daily per orthopedic recommendations CODE STATUS; full code
[2024-03-09] MEDS ORDERED: ALPRAZolam 0.25 MG TAB PO PRN (21:36)
[2024-03-09] MEDS: ASPIRIN 81 MG PO SCH (22:12)
[2024-03-09] MEDS: SENNOSIDES-DOCUSATE SODIUM 1 EACH TAB PO SCH (22:13)
[2024-03-10] MEDS: FAMOTIDINE 20 MG TAB PO SCH (09:14)
[2024-03-10 09:26] LABS: Basophils # (A) 0.01 X 10*3/uL (0.00-0.10); Basophils % (A) 0.1 %; Eosinophils # (A) 0.03 X 10*3/uL (0.04-0.35); Eosinophils % (A) 0.2 %; HCT 36.5 % (37.2-46.3); Lymphocytes # (A) 0.58 X 10*3/uL (0.90-5.00); Lymphocytes % (A) 4.4 %; MCH 30.2 pg (27.0-32.0); MCHC 32.9 g/dL (32.0-37.0); MCV 91.7 FL (80.0-97.0); Mean Platelet Volume 9.5 FL (9.5-12.2); Monocytes # (A) 0.69 X 10*3/uL (0.20-1.00); Monocytes % (A) 5.2 %; NRBC Per 100 WBC 0 X 10*3/uL (0.00-0.01); Neutrophils % (A) 89.7 %; Platelet Count 214 X 10*3/uL (140-440); RBC 3.98 X 10*6/uL (4.10-5.20); RDW 12.4 % (11.5-14.5); WBC 13.16 X 10*3/uL (4.50-10.00)
[2024-03-10 09:33] LABS: Blood Urea Nitrogen 19.8 mg/dL (9.0-27.0); Calcium 8.4 mg/dL (8.7-10.3); Chloride 101 mmol/L (96-109); Glucose 130 mg/dL (70-110); Potassium 3.8 mmol/L (3.5-5.5); Sodium 137 mmol/L (135-145)
--- NOTE | 2024-03-10 14:54 | P.PN ---
Subjective patient doing well and no acute events per nursing. Objective - Vital Signs Vital signs: Vital Signs Temp 97.9 F 03/10/24 14:14 Pulse 60 03/10/24 14:14 Resp 18 03/10/24 14:14 BP 100/64 03/10/24 14:14 Pulse Ox 96 03/10/24 14:14 FiO2 Intake & Output 03/09/24 03/10/24 03/10/24 18:59 06:59 18:59 Intake Total 1400 Output Total 300 1200 Balance 1100 -1200 Weight 85.7 kg Intake: IV 1150 Oral 250 Output: Urine 1200 Straight 600 Estimated Blood Loss 300 - Exam The patient is resting comfortably in a chair at bedside. A focused examination of the operative hip was performed. On inspection there is wound VAC over the hip. There is mild swelling throughout the thigh. Femoral nerve function is intact. The patient is able to actively dorsiflex and plantarflex their ankle and toes. Sensation is intact to light touch throughout the foot. The foot is warm and well-perfused with brisk capillary refill. - Labs CBC & Chem 7: 03/10/24 02:28 03/10/24 02:28 Labs: Abnormal Lab Results - Last 24 Hours (Table) 03/09/24 03/10/24 03/10/24 Range/Units 20:16 02:28 02:28 WBC 13.16 H (4.50-10.00) X 10*3/uL RBC 3.98 L (4.10-5.20) X 10*6/uL Hct 36.5 L (37.2-46.3) % Immature Gran # 0.05 H (0.00-0.04) X 10*3/uL Neutrophils # 11.80 H (1.80-7.70) X 10*3/uL Lymphocytes # 0.58 L (0.90-5.00) X 10*3/uL Eosinophils # 0.03 L (0.04-0.35) X 10*3/uL Anion Gap 13.00 H (4.00-12.00) mmol/L BUN/Creatinine Ratio 22.00 H (12.00-20.00) Ratio Glucose 130 H (70-110) mg/dL POC Glucose (mg/dL) 197 H (70-110) mg/dL Calcium 8.4 L (8.7-10.3) mg/dL Assessment and Plan Assessment: postoperative day #1 status post left direct anterior total hip placement Intraoperative periprosthetic calcar fracture Plan: 1. TTWB left LE, up with assistance and a walker 2. DVT prophylaxis with aspirin 81 mg BID 3. 2 doses of post operative antibiotics, doxycycline 100 mg bid 4. Leave surgical dressing in place 5. Internal medicine for mohamud-operative medical management 6. Physical therapy for gait training and mobilization 7. Dispo: Likely d/c to rehab TUESDAY or TUESDAY
[2024-03-10] MEDS: DOXYCYCLINE 100 MG CAP PO SCH (20:45)
[2024-03-11] MEDS: HYDROcodone/APAP 10-325MG 1 EACH TAB PO PRN (06:04)
--- NOTE | 2024-03-11 08:27 | P.PN ---
Subjective patient was seen this morning and is doing relatively well. She has pain in her hip. Objective - Vital Signs Vital signs: Vital Signs Temp 97.9 F 03/11/24 07:44 Pulse 89 03/11/24 07:44 Resp 17 03/11/24 07:44 BP 113/73 03/11/24 07:44 Pulse Ox 96 03/11/24 07:44 FiO2 Intake & Output 03/10/24 03/11/24 03/11/24 18:59 06:59 18:59 Output Total 800 750 Balance -800 -750 Output: Urine 800 750 - Exam resting comfortably in bed. Incisional wound VAC in place. Femoral nerve function intact. Thigh is soft. Able to move her ankle and toes up and down. - Labs CBC & Chem 7: 03/10/24 02:28 03/10/24 02:28 Labs: Abnormal Lab Results - Last 24 Hours (Table) 03/10/24 03/10/24 Range/Units 02:28 02:28 WBC 13.16 H (4.50-10.00) X 10*3/uL RBC 3.98 L (4.10-5.20) X 10*6/uL Hct 36.5 L (37.2-46.3) % Immature Gran # 0.05 H (0.00-0.04) X 10*3/uL Neutrophils # 11.80 H (1.80-7.70) X 10*3/uL Lymphocytes # 0.58 L (0.90-5.00) X 10*3/uL Eosinophils # 0.03 L (0.04-0.35) X 10*3/uL Anion Gap 13.00 H (4.00-12.00) mmol/L BUN/Creatinine Ratio 22.00 H (12.00-20.00) Ratio Glucose 130 H (70-110) mg/dL Calcium 8.4 L (8.7-10.3) mg/dL Assessment and Plan Plan: continue treatment as outlined yesterday. The patient will likely need discharge to rehab or assisted facility hopefully in the next 1-2 days.
[2024-03-11] MEDS: ATORVASTATIN 10 MG TAB PO SCH (08:32)
[2024-03-11 12:20] LABS: Basophils % (A) 0 %; Eosinophils # (A) 0.3 k/uL (0-0.7); Eosinophils % (A) 5 %; HCT 39.7 % (34.0-46.0); HGB 12.8 gm/dL (11.4-16.0); Lymphocytes % (A) 14 %; MCH 29.3 pg (25.0-35.0); MCHC 32.3 g/dL (31.0-37.0); MCV 90.6 fL (80.0-100.0); Mean Platelet Volume 6.8; Monocytes # (A) 0.3 k/uL (0-1.0); Monocytes % (A) 4 %; Neutrophils # (A) 5.1 k/uL (1.3-7.7); Neutrophils % (A) 76 %; Platelet Count 193 k/uL (150-450); RBC 4.39 m/uL (3.80-5.40); RDW 12.8 % (11.5-15.5); WBC 6.8 k/uL (3.8-10.6)
--- NOTE | 2024-03-11 16:05 | P.PN ---
Subjective Progress Note Date: 03/10/24 73-year-old female patient with history of hypertension, hyperlipidemia, GERD, history of DVT, admitted to the hospital for elective left direct anterior total hip arthroplasty; patient is POD #0 During procedure patient sustained intraoperative periprosthetic femoral fracture; reports fair pain control; remains on bedrest per recommendations of orthopedic surgery; reports poor to reduced appetite; fair fluid intake Blood glucose elevated at 197 Given intraoperative fracture, patient is recommended to be toe-touch weightbearing on left lower extremity for 6 weeks; she did receive 2 doses of postoperative antibiotics and low-dose antibiotic suppression with doxycycline 100 mg twice daily -DVT prophylaxis with aspirin 81 mg twice daily Objective - Vital Signs Vital signs: Vital Signs Temp 97.4 F L 03/10/24 07:30 Pulse 61 03/10/24 07:30 Resp 20 03/10/24 07:30 BP 95/58 03/10/24 07:30 Pulse Ox 95 03/10/24 09:07 FiO2 Intake & Output 03/09/24 03/10/24 03/10/24 18:59 06:59 18:59 Intake Total 1400 Output Total 300 1200 Balance 1100 -1200 Weight 85.7 kg Intake: IV 1150 Oral 250 Output: Urine 1200 Straight 600 Estimated Blood Loss 300 - Exam General appearance: Present: average body habitus, cooperative, no acute distress - EENT Eyes: Present: anicteric sclerae, EOMI, PERRLA, normal appearance Neck: Present: normal ROM. Absent: lymphadenopathy, rigidity, thyromegaly Thyroid: bilateral: normal size, negative: enlarged, nodule Respiratory: bilateral: CTA, negative: rales, rhonchi, wheezing Cardiovascular: regular: normal: S1, S2 Abnormal Heart Sounds: Absent: systolic murmur, diastolic murmur General gastrointestinal: Present: normal bowel sounds, soft. Absent: distended, organomegaly, tenderness Integumentary: Present: normal turgor. Absent: jaundiced, rash, ulcer Neurologic: Present: CNII-XII intact. Absent: focal deficits Psychiatric: Present: A&O x's 3, appropriate affect, intact judgment & insight - Labs CBC & Chem 7: 03/11/24 12:08 03/10/24 02:28 Labs: Abnormal Lab Results - Last 24 Hours (Table) 10/25/24 10/26/24 10/26/24 Range/Units 20:16 02:28 02:28 WBC 13.16 H (4.50-10.00) X 10*3/uL RBC 3.98 L (4.10-5.20) X 10*6/uL Hct 36.5 L (37.2-46.3) % Immature Gran # 0.05 H (0.00-0.04) X 10*3/uL Neutrophils # 11.80 H (1.80-7.70) X 10*3/uL Lymphocytes # 0.58 L (0.90-5.00) X 10*3/uL Eosinophils # 0.03 L (0.04-0.35) X 10*3/uL Anion Gap 13.00 H (4.00-12.00) mmol/L BUN/Creatinine Ratio 22.00 H (12.00-20.00) Ratio Glucose 130 H (70-110) mg/dL POC Glucose (mg/dL) 197 H (70-110) mg/dL Calcium 8.4 L (8.7-10.3) mg/dL Assessment and Plan Assessment: 1. Severe left hip osteoarthritis; patient is status post left direct anterior total hip arthroplasty; POD #0 --Patient sustained an intraoperative periprosthetic femoral fracture; Given intraoperative fracture, patient is recommended to be toe-touch weightbearing on left lower extremity for 6 weeks; she did receive 2 doses of postoperative antibiotics and low-dose antibiotic suppression with doxycycline 100 mg twice daily -DVT prophylaxis with aspirin 81 mg twice daily 2. Hypertension; lisinoprilhydrochlorothiazide 20-12.5 mg daily 3. Hyperlipidemia; Lipitor 10 mg daily 4. Anxiety; Xanax 0.25 mg twice daily 5. GERD/gastritis; Protonix 40 mg daily DVT prophylaxis; heparin 81 mg twice daily per orthopedic recommendations CODE STATUS; full code
--- NOTE | 2024-03-11 16:07 | P.PN ---
Subjective Progress Note Date: 03/11/24 73-year-old female patient with history of hypertension, hyperlipidemia, GERD, history of DVT, admitted to the hospital for elective left direct anterior total hip arthroplasty; patient is POD #0 During procedure patient sustained intraoperative periprosthetic femoral fracture; reports fair pain control; remains on bedrest per recommendations of orthopedic surgery; reports poor to reduced appetite; fair fluid intake Blood glucose elevated at 197 Given intraoperative fracture, patient is recommended to be toe-touch weightbearing on left lower extremity for 6 weeks; she did receive 2 doses of postoperative antibiotics and low-dose antibiotic suppression with doxycycline 100 mg twice daily -DVT prophylaxis with aspirin 81 mg twice daily 03/11/2024 Patient is seen and evaluated sitting up in the bedside chair; reports worsening pain today; patient indicating she was up in the bedside chair for entire day yesterday which aggravated hip and leg pain; pain fairly controlled on [place] Vital signs are reviewed; blood pressure remains within normal limits without antihypertensive medications; will continue to hold antihypertensive therapy CBC reviewed with WBC elevated at 13.1 yesterday; likely reactive; will repeat CBC --Patient remains on aspirin 81 mg twice daily for DVT prophylaxis -Possible discharge to skilled rehab once stable Objective - Vital Signs Vital signs: Vital Signs Temp 97.9 F 03/11/24 07:44 Pulse 89 03/11/24 07:44 Resp 17 03/11/24 07:44 BP 113/73 03/11/24 07:44 Pulse Ox 96 03/11/24 07:44 FiO2 Intake & Output 03/10/24 03/11/24 03/11/24 18:59 06:59 18:59 Output Total 800 750 Balance -800 -750 Output: Urine 800 750 - Exam General appearance: Present: average body habitus, cooperative, no acute distress - EENT Eyes: Present: anicteric sclerae, EOMI, PERRLA, normal appearance Neck: Present: normal ROM. Absent: lymphadenopathy, rigidity, thyromegaly Thyroid: bilateral: normal size, negative: enlarged, nodule Respiratory: bilateral: CTA, negative: rales, rhonchi, wheezing Cardiovascular: regular: normal: S1, S2 Abnormal Heart Sounds: Absent: systolic murmur, diastolic murmur General gastrointestinal: Present: normal bowel sounds, soft. Absent: distended, organomegaly, tenderness Integumentary: Present: normal turgor. Absent: jaundiced, rash, ulcer Neurologic: Present: CNII-XII intact. Absent: focal deficits Psychiatric: Present: A&O x's 3, appropriate affect, intact judgment & insight - Labs CBC & Chem 7: 03/11/24 12:08 03/10/24 02:28 Assessment and Plan Assessment: 1. Severe left hip osteoarthritis; patient is status post left direct anterior total hip arthroplasty; POD #0 --Patient sustained an intraoperative periprosthetic femoral fracture; Given intraoperative fracture, patient is recommended to be toe-touch weightbearing on left lower extremity for 6 weeks; she did receive 2 doses of postoperative antibiotics and low-dose antibiotic suppression with doxycycline 100 mg twice daily -DVT prophylaxis with aspirin 81 mg twice daily 2. Hypertension; lisinoprilhydrochlorothiazide 20-12.5 mg daily 3. Hyperlipidemia; Lipitor 10 mg daily 4. Anxiety; Xanax 0.25 mg twice daily 5. GERD/gastritis; Protonix 40 mg daily DVT prophylaxis; heparin 81 mg twice daily per orthopedic recommendations CODE STATUS; full code
--- NOTE | 2024-03-11 19:29 | P.ANPRN ---
Procedure Note - Anesthesia - Nerve Block Performed Left [place] Single Time Out Performed: Yes Date of Procedure: 03/09/24 Procedure Start Time: 07:08 Procedure Stop Time: 07:12 Location of Patient: PreOp Indication: Acute Post-Operative Pain, Requested by Surgeon Sedation Type: Sedate with meaningful contact maintained Preparation: Sterile Prep Position: Supine Needle Types: Pajunk Needle Gauge: 21 Ultrasound used to visualize needle placement: Yes Ultrasound used to observe medication spread: Yes Resistance on Injection: Normal Image Stored and Saved: Yes Events: Uneventful and Well Tolerated (Ropivacaine 0.5% 20 cc plus dexamethasone 4 mg)
[2024-03-12 07:46] VITALS: BP 126/74; PULSE 88; RESP 17; TEMP 98
--- NOTE | 2024-03-12 08:31 | P.PN ---
Subjective Progress Note Date: 03/12/24 No acute events overnight per patient. Patient has mild pain in the left hip that is controlled with oral pain medication. Objective - Vital Signs Vital signs: Vital Signs Temp 98 F 03/12/24 07:28 Pulse 88 03/12/24 07:28 Resp 17 03/12/24 07:28 BP 126/74 03/12/24 07:28 Pulse Ox 95 03/12/24 07:28 FiO2 Intake & Output 03/11/24 03/12/24 03/12/24 18:59 06:59 18:59 Other: Voiding Method Bedside Commode # Voids 4 1 - Exam Patient was awake, alert, and able to answer questions. Patient was sitting up in bed. On inspection there is a wound VAC over the left anterior hip, it is intact, there is no drainage, it is fully compressed. There is no surrounding erythema. Left femoral nerve function is grossly intact. Patient is able to plantarflex and dorsiflex her left ankle and toes. Patient's foot is well- perfused with capillary refill under 2 seconds. - Labs CBC & Chem 7: 03/11/24 12:08 03/10/24 02:28 Assessment and Plan Assessment: postoperative day #3 status post left direct anterior total hip placement Intraoperative periprosthetic calcar fracture Plan: 1. TTWB left LE, up with assistance and a walker 2. DVT prophylaxis with aspirin 81 mg BID 3. 2 doses of post operative antibiotics, doxycycline 100 mg bid 4. Leave surgical dressing in place 5. Internal medicine for mohamud-operative medical management 6. Physical therapy, assessed patient and recommended rehab. 7. Dispo: Anticipate transfer to rehab on 03/13.
[2024-03-12 08:41] LABS: Basophils # (A) 0.04 X 10*3/uL (0.00-0.10); Basophils % (A) 0.6 %; Eosinophils # (A) 0.34 X 10*3/uL (0.04-0.35); Eosinophils % (A) 5.2 %; HCT 38.1 % (37.2-46.3); HGB 12.1 g/dL (12.0-15.0); Lymphocytes # (A) 1.47 X 10*3/uL (0.90-5.00); Lymphocytes % (A) 22.5 %; MCH 29.2 pg (27.0-32.0); MCHC 31.8 g/dL (32.0-37.0); MCV 91.8 FL (80.0-97.0); Mean Platelet Volume 9.4 FL (9.5-12.2); Monocytes # (A) 0.46 X 10*3/uL (0.20-1.00); Monocytes % (A) 7.1 %; NRBC Per 100 WBC 0 X 10*3/uL (0.00-0.01); Neutrophils # (A) 4.19 X 10*3/uL (1.80-7.70); Neutrophils % (A) 64.3 %; Platelet Count 200 X 10*3/uL (140-440); RBC 4.15 X 10*6/uL (4.10-5.20); RDW 12.9 % (11.5-14.5); WBC 6.52 X 10*3/uL (4.50-10.00)
[2024-03-12 08:51] LABS: BUN/Creat Ratio 31.14 Ratio (12.00-20.00); Blood Urea Nitrogen 21.8 mg/dL (9.0-27.0); Carbon Dioxide 26.2 mmol/L (21.6-31.8); Chloride 106 mmol/L (96-109); Glucose 101 mg/dL (70-110); Sodium 140 mmol/L (135-145)
[2024-03-12 08:52] LABS: Calcium 8.5 mg/dL (8.7-10.3)
--- NOTE | 2024-03-12 11:59 | P.DS ---
Providers Attending physician: Alon Lerma Consults: 03/09/24 11:06 Consult Physician Routine Consulting Provider: Alvaro Yañez Consult Reason/Comments: Postop medical management Do you want consulting provider notified?: Yes Primary care physician: Hernesto [facility] Hospital Course: The patient is a very pleasant 73-year-old female who presented to preop for scheduled direct anterior left total hip arthoplasty for severe left hip osteoarthritis that failed conservative management. The patient had a Intra-operative periprosthetic femur fracture, cables above and below the lesser trochanter were placed, and the patient was placed on toe touch weight bearing restrictions of the left lower extremity for 6 weeks. Patient tolerated the procedure well. Patient was transferred to the orthopedic floor. Patient has been doing well in the postoperative period. The patient's pain has been well-controlled with oral pain medication. Patient was examined at bedside this morning. The patient has an incisional neck in place over the left anterior hip. The patient's left femoral nerve function is grossly intact. Patient is able plantarflex and dorsiflex her left ankle and toes. Patient's left foot is well-perfused with capillary refill under 2 seconds. Patient worked with physical therapy and will be transferred to a rehab facility. Plan - Discharge Summary Discharge Rx Participant: No New Discharge Prescriptions: New Docusate [Colace] 100 mg PO BID #60 capsule HYDROcodone/APAP 5-325MG [[place] 5] 1 - 2 each PO Q6HR PRN #48 tab PRN Reason: Pain Omeprazole 20 mg PO DAILY #30 tab Ondansetron [Zofran] 4 mg PO Q6HR PRN #30 tab PRN Reason: Nausea Aspirin 81 mg PO BID #60 tab Doxycycline Monohydrate 100 mg PO BID #28 cap Continue ALPRAZolam [Xanax] 0.25 mg PO BID PRN PRN Reason: Anxiety Econazole 1% Cream [Spectazole] 1 applic TOPICAL DAILY #15 gm Atorvastatin [Lipitor] 10 mg PO DAILY Discontinued Lisinopril-Hctz 20-12.5 mg [Zestoretic 20-12.5] 1 tab PO DAILY Fluconazole [Diflucan] 150 mg PO DAILY #2 tab Discharge Medication List ALPRAZolam [Xanax] 0.25 mg PO BID PRN 01/20/22 [History] Atorvastatin [Lipitor] 10 mg PO DAILY 01/20/22 [History] Econazole 1% Cream [Spectazole] 1 applic TOPICAL DAILY #15 gm 02/24/24 [Rx] Aspirin 81 mg PO BID #60 tab 03/12/24 [Rx] Docusate [Colace] 100 mg PO BID #60 capsule 03/12/24 [Rx] Doxycycline Monohydrate 100 mg PO BID #28 cap 03/12/24 [Rx] HYDROcodone/APAP 5-325MG [[place] 5] 1 - 2 each PO Q6HR PRN #48 tab 03/12/24 [Rx] Omeprazole 20 mg PO DAILY #30 tab 03/12/24 [Rx] Ondansetron [Zofran] 4 mg PO Q6HR PRN #30 tab 03/12/24 [Rx] Follow up Appointment(s)/Referral(s): Alon Lerma MD [Medical Doctor] - 2 Weeks Activity/Diet/Wound Care/Special Instructions: [facility] rehab 1. Toe-touch weight-bear on your operative extremity, up with assistance only, mobilize to bed and chair, for 6 weeks. Use a walker or other assistive device to ambulate. 2. Leave surgical vac/dressing in place. If your dressing becomes saturated with blood, there is drainage, or the dressing becomes loose please contact the office. 3. It is okay to shower with your surgical dressing, but do not submerge in water (no hot tubs, bath's, swimming etc.) 4. Take your blood clot prevention medication as prescribed (aspirin, Eliquis, Xarelto, and Plavix are commonly prescribed medications for blood clot pr evention) 5. While taking [place] or Percocet for pain take a stool softener (Ex: Colace) and drink lots of water. 6. Keep all follow-up appointments as scheduled. You will usually be seen in 1-2 weeks following surgery. 7. Please contact the office with any questions or concerns [phone] Discharge Disposition: TRANSFER TO SNF/ECF
== END 2024-03-12 14:08 ==
LOC: OR 05:52 → 4SSUR 10:53 → OR 03-12 14:08
PROVIDERS: ATTEND Orthopaedic Surgery
CPT/HCPCS: 64447; 73501; 80048; 85025; 86850; 86900; 86901

== ENCOUNTER 2024-05-17 16:44 | Emergency (ER) | payer MEDICARE, OTHER ==
[2024-05-17 16:58] VITALS: TEMP 98
--- NOTE | 2024-05-17 17:01 | ED ---
Lower Extremity Injury HPI - General Chief Complaint: Extremity Injury, Lower Stated Complaint: L leg swelling Time Seen by Provider: 05/17/24 17:00 Source: patient Mode of arrival: ambulatory Limitations: no limitations - History of Present Illness Initial Comments: 74-year-old female presenting with chief complaint of left lower leg swelling. Patient had left hip replacement on 03/09. She later had a fracture of the prosthetic which prolonged her recovery. Patient has been having swelling to the lower legs and discomfort. She is not on any blood thinners. No chest pain or difficulty breathing. No palpitations numbness tingling or weakness. She was sent by Dr. Lerma to rule out DVT. - Related Data Home Medications Medication Instructions Recorded Confirmed ALPRAZolam [Xanax] 0.25 mg PO BID PRN 01/20/22 03/09/24 Atorvastatin [Lipitor] 10 mg PO DAILY 01/20/22 03/09/24 Previous Rx's Medication Instructions Recorded Econazole 1% Cream [Spectazole] 1 applic TOPICAL DAILY #15 gm 02/24/24 Aspirin 81 mg PO BID #60 tab 03/12/24 Docusate [Colace] 100 mg PO BID #60 capsule 03/12/24 Doxycycline Monohydrate 100 mg PO BID #28 cap 03/12/24 HYDROcodone/APAP 5-325MG [[place] 5] 1 - 2 each PO Q6HR PRN #48 tab 03/12/24 Omeprazole 20 mg PO DAILY #30 tab 03/12/24 Ondansetron [Zofran] 4 mg PO Q6HR PRN #30 tab 03/12/24 Apixaban [Eliquis Starter Pack 5 - 10 mg PO DIRECTED 30 Days 05/17/24 (for VTE)] #1 each Allergies Allergy/AdvReac Type Severity Reaction Status Date / Time No Known Allergies Allergy Verified 05/17/24 16:58 Review of Systems ROS Statement: Those systems with pertinent positive or pertinent negative responses have been documented in the HPI. ROS Other: All systems not noted in ROS Statement are negative. Past Medical History Past Medical History: Cancer, Deep Vein Thrombosis (DVT), GERD/Reflux, Hyperlipidemia, Hypertension Additional Past Medical History / Comment(s): cervical cancer, vergio History of Any Multi-Drug Resistant Organisms: None Reported Past Surgical History: Hysterectomy, Joint Replacement, Orthopedic Surgery, Tonsillectomy Additional Past Surgical History / Comment(s): right hip, d & c, carpal tunnel Past Anesthesia/Blood Transfusion Reactions: No Reported Reaction Past Psychological History: Anxiety Smoking Status: Never smoker Past Alcohol Use History: None Reported Past Drug Use History: None Reported - Past Family History Brother(s) History Unknown: Yes General Exam - General Exam Comments Initial Comments: Visual Physical Exam Vital signs reviewed General: Well-appearing, nontoxic, no acute distress. Head: Normocephalic, atraumatic Eyes: PERRLA, EOMI ENT: Airway patent Chest: Nonlabored breathing Skin: No visual rash, normal skin tone Neuro: Alert and oriented 3 Musculoskeletal: No gross abnormalities Limitations: no limitations General appearance: alert, in no apparent distress Head exam: Present: atraumatic, normocephalic, normal inspection Eye exam: Present: normal appearance, EOMI Neck exam: Present: normal inspection. Absent: meningismus Respiratory exam: Absent: respiratory distress Cardiovascular Exam: Present: regular rate Left Lower Leg exam: Present: full ROM, tenderness, swelling Neurovascular tendon exam: Present: no vascular compromise Neurological exam: Present: alert, oriented X3 Psychiatric exam: Present: normal affect, normal mood Skin exam: Present: warm, dry Course Vital Signs 05/17/24 05/17/24 16:53 19:04 Temperature 98.0 F 98.0 F Pulse Rate 73 65 Respiratory 18 16 Rate Blood Pressure 150/84 170/73 O2 Sat by Pulse 97 96 Oximetry Medical Decision Making - Medical Decision Making I performed the quick note portion of this visit, electronically signed Indigo Lott PA-C Was pt. sent in by a medical professional or institution ([facility] Ordaz, YARD ATTENDANT, urgent care, hospital, or [facility]...) When possible be specific @ -Dr. Lerma, orthopedist Did you speak to anyone other than the patient for history (EMS, parent, family, police, friend...)? What history was obtained from this source @ -No Did you review nursing and triage notes (agree or disagree)? Why? @ -I reviewed and agree with nursing and triage notes Were old charts reviewed (outside hosp., previous admission, EMS record, old EKG, old radiological studies, urgent care reports/EKG's, [facility] records)? Report findings @ -No old charts were reviewed Differential Diagnosis (chest pain, altered mental status, abdominal pain women, abdominal pain men, vaginal bleeding, weakness, fever, dyspnea, syncope, headache, dizziness, GI bleed, back pain, seizure, CVA, palpatations, mental health, musculoskeletal)? @ -Differential Musculoskeletal Muscular strain, contusion, ligament sprain, fracture, arthritis, septic arthritis, bursitis, cellulitis, muscle spasm, nerve compression, DVT, arterial occlusion, herpes zoster, electrolyte abnormality, tumor.... This is not meant to be in all inclusive list EKG interpreted by me (3pts min.). @ -As above X-rays interpreted by me (1pt min.). @ -None done CT interpreted by me (1pt min.). @ -None done U/S interpreted by me (1pt. min.). @ -Ultrasound is positive for DVT within the left femoral vein extending through the calf veins What testing was considered but not performed or refused? (CT, X-rays, U/S, labs)? Why? @ -None What meds were considered but not given or refused? Why? @ -None Did you discuss the management of the patient with other professionals (professionals i.e. , PA, YARD ATTENDANT, lab, RT, psych nurse, social work job titles, crayon grader, teacher, credit administration officer, case mgr)? Give summary @ -No Was smoking cessation discussed for >3mins.? @ -No Was critical care preformed (if so, how long)? @ -No Were there social determinants of health that impacted care today? How? (Homelessness, low income, unemployed, alcoholism, drug addiction, transportation, low edu. Level, literacy, decrease access to med. care, [place] [facility], rehab)? @ -No Was there de-escalation of care discussed even if they declined (Discuss DNR or withdrawal of care, Hospice)? DNR status @ -No What co-morbidities impacted this encounter? (DM, HTN, Smoking, COPD, CAD, Cancer, CVA, ARF, Chemo, Hep., AIDS, mental health diagnosis, sleep apnea, morbid obesity)? @ -None Was patient admitted / discharged? Hospital course, mention meds given and route, prescriptions, significant lab abnormalities, going to OR and other pertinent info. @ -74-year-old female presenting with chief complaint of left lower leg pain and swelling. Patient has history of hip replacement back in February. No chest pain or difficulty breathing. Sent by Dr. Lerma's office to rule out DVT. She is neurovascularly intact, there is lower extremity swelling. Ultrasound is positive for DVT. Patient is started on Eliquis, first dose is given here in the ER. She is having no chest pain or difficulty breathing, no symptoms of PE. Patient educated on today's findings and treatment plan. Follow-up with PCP. Report back to ER with any new or worsening symptoms. Discussed return parameters and answered all questions. Patient conveyed verbal understanding and agreed to the plan. I discussed this case in detail with my attending Dr. Neri Undiagnosed new problem with uncertain prognosis? @ -No Drug Therapy requiring intensive monitoring for toxicity (Heparin, Nitro, Insulin, Cardizem)? @ -No Were any procedures done? @ -No Diagnosis/symptom? @ -DVT Acute, or Chronic, or Acute on Chronic? @ -Acute Uncomplicated (without systemic symptoms) or Complicated (systemic symptoms)? @ -Uncomplicated Side effects of treatment? @ -No Exacerbation, Progression, or Severe Exacerbation? @ -No Poses a threat to life or bodily function? How? (Chest pain, [place], [place], pneumonia, PE, COPD, DKA, ARF, appy, cholecystitis, CVA, Diverticulitis, Homicidal, Suicidal, threat to staff... and all critical care pts) @ -DVTs can develop into PEs, patient is having no symptoms of PE at this time and is being started on the appropriate treatment Disposition Clinical Impression: DVT (deep venous thrombosis) Disposition: HOME SELF-CARE Condition: Good Instructions (If sedation given, give patient instructions): Deep Vein Thrombosis (ED) Additional Instructions: Follow-up with your PCP. Report back to ER with any new or worsening symptoms. Take medication as prescribed. Prescriptions: Apixaban [Eliquis Starter Pack (for VTE)] 5 - 10 mg PO DIRECTED 30 Days #1 each Is patient prescribed a controlled substance at d/c from ED?: No Referrals: Hernesto Cantu DO [Primary Care Provider] - 1-2 days Time of Disposition: 18:49
--- NOTE | 2024-05-17 18:30 | US ---
EXAMINATION TYPE: US venous doppler duplex LE LT DATE OF EXAM: 05/17/2024 6:10 PM COMPARISON: NONE CLINICAL INDICATION: Female, 74 years old with history of Swelling; Patient states hip replacement oc , pain and swelling since then. Patient takes baby aspirin , Pain TECHNIQUE: The lower extremity deep venous system is examined utilizing real time linear array sonog lakeisha with graded compression, color doppler sonography, and spectral doppler. SIDE PERFORMED: Left FINDINGS: VESSELS IMAGED: Common Femoral Vein Deep Femoral Vein Greater Saphenous Vein * Femoral Vein Popliteal Vein Small Saphenous Vein * Proximal Calf Veins (* superficial vessels) Left Leg: Echoes seen from the proximal femoral vein throughout the calf veins. There is a trace keyonna unt of color doppler flow seen within the popliteal vein. These veins do not appear to fully iain s, IMPRESSION: Positive deep vein thrombosis within the left femoral vein extending through the calf veins. Findings communicated to Indigo Lott, PAC on 05/17/2024 6:[address] Jesus Manuel Humphries. [facility], , 05/17/2024 6:27 PM
[2024-05-17] MEDS: APIXABAN 5 MG TAB PO STA (19:02)
[2024-05-17 19:06] VITALS: BP 170/73; PULSE 65; RESP 16
== END 2024-05-17 19:06 | disposition home or self-care (01) ==
LOC: EC 16:44
DX: I82.412 Acute embolism and thrombosis of left femoral vein (principal)
CPT/HCPCS: 99283